=== PATIENT | male | born 1985 | race Caucasian/White ===

== ENCOUNTER 2017-06-16 18:50 | Emergency (ER) | payer OTHER ==
[2017-06-16 19:02] VITALS: BMI 27.2
[2017-06-16 19:07] VITALS: RESP 18
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
[2017-06-16 20:48] VITALS: BP 123/79; PULSE 65; TEMP 97.2
[2017-06-16 21:07] VITALS: O2SAT 98
== END 2017-06-16 20:48 | disposition home or self-care (01) ==
LOC: C.ER 18:50
DX: S39.012A Strain of muscle, fascia and tendon of lower back, initial encounter (principal); V89.2XXA Person injured in unspecified motor-vehicle accident, traffic, initial encounter; R11.0 Nausea